=== PATIENT | male | born 1945 | race Caucasian/White ===

== ENCOUNTER 2023-03-25 02:22 | Day surgery (SDC) | payer MEDICARE, SELFPAY ==
[2023-03-15 10:37] VITALS: BMI 33.5
[2023-03-25 10:49] VITALS: BP 144/84; PULSE 61; RESP 18; TEMP 36.2; O2SAT 98
[2023-03-25] MEDS: LACTATED RINGERS 1,000 ML 150 ML IV CONT (10:59)
--- NOTE | 2023-03-25 11:17 | PM.HPGS ---
History of Present Illness History of Present Illness Consent: Risks, benefits, and alternatives have been discussed and questions answered. Patient agrees to proceed with procedure. Chief complaint: neoplasm screening , Ellsworth's Esophagus Narrative: Shun Haider is a 77 year old male Presents for both colonoscopy and EGD. Patient has a history of GE reflux and Ellsworth's esophagus. Currently symptoms are stable. He currently takes pantoprazole 40mg p.o. once daily. Symptoms are well controlled unless he goes off his diet. Patient denies any dysphagia or bleeding. Family history noncontributory. At additionally patient presents for screening colonoscopy. Reports his weight appetite and bowel movements are normal. There is no known family history of colon or rectal disease. Review of Systems Review of Systems: Review of systems noncontributory. [facility] Family History Family History Mother Family history of malignant neoplasm of ovary Father Family history of heart disease in male family member before age 55 Other Family history of cardiovascular disease Family history of malignant neoplasm Social History Social History Smoking status: Never smoker Second hand tobacco smoke exposure: Yes Alcohol intake: current Alcohol use details: occasionally Substance use: never Substance use type: does not use Lack of Transportation: No Lack of Food: Never True Current Housing: I Have Housing Concerned About Future Housing: No Difficulty Paying Gas/Electric Bills: No Difficulty Paying for Meds: No Currently Unemployed: No Education: High School Diploma/GED Difficulty w/ Childcare or Family Care: No Living arrangements: with family Spiritual care concerns: No Meds Home Medications and Allergies Home Medications Medication Instructions Recorded Confirmed Type carvedilol 3.125 mg tablet 3.125 mg PO Q12H PRN HTN 06/26/19 03/25/23 History clopidogrel 75 mg tablet (Plavix) 75 mg PO DAILY 01/19/21 03/25/23 History omega 6-yvr-ceh-fish oil 1,000 mg 1 cap PO BID 07/27/21 03/15/23 History (120 mg-180 mg) capsule (Fish Oil) glucosamine 750 rx-sojgal-tkg 2-C 1 tablet PO DAILY 08/15/22 03/15/23 History 30 mg-D3 1,000 unit-evette 1 mg tablet sodium,potassium,mag sulfates 17.5 See Rx Instructions PO .COMPLEX 09/03/22 09/12/22 Rx gram-3.13 gram-1.6 gram oral soln #354 mL (Suprep Bowel Prep Kit) rosuvastatin 20 mg tablet See Rx Instructions .Route 11/23/22 03/15/23 Rx .COMPLEX #90 tabs levothyroxine 137 mcg tablet 137 mcg PO DAILY #90 tabs 01/07/23 03/25/23 Rx losartan 100 mg tablet 100 mg PO DAILY #90 tabs 01/22/23 03/15/23 Rx pantoprazole 40 mg tablet,delayed See Rx Instructions .Route 01/22/23 03/15/23 Rx release .COMPLEX #90 tabs amlodipine 5 mg tablet 5 mg PO DAILY #90 tabs 02/19/23 03/25/23 Rx furosemide 40 mg tablet 40 mg PO QAM #90 tabs 02/19/23 03/15/23 Rx hydrocodone 10 mg-acetaminophen 1 tablet PO Q4-6H PRN pain #60 tabs 02/19/23 03/15/23 Rx 325 mg tablet lorazepam 1 mg tablet 1 mg PO TID PRN anxiety #40 tabs 02/19/23 03/25/23 Rx naloxone 4 mg/actuation nasal 1 spray intranasal Q2-3M PRN 02/19/23 03/15/23 Rx spray (Narcan) opioid overdose #2 ea cholecalciferol (vitamin D3) 50 50 mcg PO DAILY 03/15/23 03/15/23 History mcg (2,000 unit) capsule (Vitamin D3) ferrous sulfate 325 mg (65 mg 325 mg PO DAILY 03/15/23 03/15/23 History iron) tablet vit C 250 mg-E 90 mg-zinc 40 1 tablet PO QAM AND QPM 03/15/23 03/15/23 History mg-copper 1 oa-osqcwh-aqrmvh chew tablet (PreserVision AREDS-2) Allergies Allergy/AdvReac Type Severity Reaction Status Date / Time adhesive Allergy Blister Verified 03/25/23 10:46 Vital Signs Vital Signs - 24 hr 03/25/23 10:49 Temperature 97.2 F L Pulse Rate 61 Respiratory Rate 18 Blood
--- NOTE | 2023-03-25 12:08 | WPDANESEPPF ---
Anes - Initial Pre Proc Eval Procedure: Operation Date: 03/25/23 12:30 Proposed Procedures p Esophagogastroduodenoscopy & Colonoscopy - Fabián Dubois MD Date/Time: 03/25/23 12:08 Surgeon: Fabián Dubois MD Pre Op Diagnosis: neoplasm screening , Ellsworth's Esophagus Patient Data Age: 77 Gender: M Height: 1.8 m Weight: 106 kg Last Vital Signs Temp 97.2 F L 03/25/23 10:49 Pulse 61 03/25/23 10:49 Resp 18 03/25/23 10:49 BP 144/84 H 03/25/23 10:49 Pulse Ox 98 03/25/23 10:49 O2 Del Method Room Air 03/25/23 10:49 Allergies Allergy/AdvReac Type Severity Reaction Status Date / Time adhesive Allergy Blister Verified 03/25/23 10:46 Home Medications Medication Instructions Recorded Confirmed Type carvedilol 3.125 mg tablet 3.125 mg PO Q12H PRN HTN 06/26/19 03/25/23 History clopidogrel 75 mg tablet (Plavix) 75 mg PO DAILY 01/19/21 03/25/23 History omega 3-rbb-wlc-fish oil 1,000 mg 1 cap PO BID 07/27/21 03/15/23 History (120 mg-180 mg) capsule (Fish Oil) glucosamine 750 wg-vzgixo-evx 2-C 1 tablet PO DAILY 08/15/22 03/15/23 History 30 mg-D3 1,000 unit-evette 1 mg tablet sodium,potassium,mag sulfates 17.5 See Rx Instructions PO .COMPLEX 09/03/22 09/12/22 Rx gram-3.13 gram-1.6 gram oral soln #354 mL (Suprep Bowel Prep Kit) rosuvastatin 20 mg tablet See Rx Instructions .Route 11/23/22 03/15/23 Rx .COMPLEX #90 tabs levothyroxine 137 mcg tablet 137 mcg PO DAILY #90 tabs 01/07/23 03/25/23 Rx losartan 100 mg tablet 100 mg PO DAILY #90 tabs 01/22/23 03/15/23 Rx pantoprazole 40 mg tablet,delayed See Rx Instructions .Route 01/22/23 03/15/23 Rx release .COMPLEX #90 tabs amlodipine 5 mg tablet 5 mg PO DAILY #90 tabs 02/19/23 03/25/23 Rx furosemide 40 mg tablet 40 mg PO QAM #90 tabs 02/19/23 03/15/23 Rx hydrocodone 10 mg-acetaminophen 1 tablet PO Q4-6H PRN pain #60 tabs 02/19/23 03/15/23 Rx 325 mg tablet lorazepam 1 mg tablet 1 mg PO TID PRN anxiety #40 tabs 02/19/23 03/25/23 Rx naloxone 4 mg/actuation nasal 1 spray intranasal Q2-3M PRN 02/19/23 03/15/23 Rx spray (Narcan) opioid overdose #2 ea cholecalciferol (vitamin D3) 50 50 mcg PO DAILY 03/15/23 03/15/23 History mcg (2,000 unit) capsule (Vitamin D3) ferrous sulfate 325 mg (65 mg 325 mg PO DAILY 03/15/23 03/15/23 History iron) tablet vit C 250 mg-E 90 mg-zinc 40 1 tablet PO QAM AND QPM 03/15/23 03/15/23 History mg-copper 1 fu-fjkpke-hopues chew tablet (PreserVision AREDS-2) Patient hx anesthesia problems: none Family hx anesthesia problems: none Results Review: All pre-operative results and documents have been reviewed as part of the pre-operative evaluation. [facility] Family History Family History Mother Family history of malignant neoplasm of ovary Father Family history of heart disease in male family member before age 55 Other Family history of cardiovascular disease Family history of malignant neoplasm Social History Social History Smoking status: Never smoker Second hand tobacco smoke exposure: Yes Alcohol intake: current Alcohol use details: occasionally Substance use: never Substance use type: does not use Lack of Transportation: No Lack of Food: Never True Current Housing: I Have Housing Concerned About Future Housing: No Difficulty Paying Gas/Electric Bills: No Difficulty Paying for Meds: No Currently Unemployed: No Education: High School Diploma/GED Difficulty w/ Childcare or Family Care: No Living arrangements: with family Spiritual care concerns: No Anes - Eval Final PreProcedure Day of Procedure 03/25/23 12:08 Patient weight: obese Heart: regular rate and rhythm Lungs: clear to auscultation Airway: Mallampati scale class III Neurological: alert and oriented Last oral intake: >/= 8 hours ASA classification: III Emergent:
[2023-03-25] MEDS: SIMETHICONE ORAL SUSPENSION 20 MG/0.3 ML 30 ML BOTTLE 0.6 ML IRRIGATION (12:43)
--- NOTE | 2023-03-25 12:44 | SUR.OPER ---
EGD START: 1231; END: 1233. COLONOSCOPY START: 1239; END: 1248.
[2023-03-25 12:50] VITALS: BP 93/66; PULSE 51; RESP 17; O2SAT 98
[2023-03-25 13:00] VITALS: BP 111/72; PULSE 52; RESP 13; O2SAT 98
[2023-03-25 13:10] VITALS: BP 130/79; PULSE 52; RESP 18; O2SAT 98
[2023-03-25 13:17] VITALS: BP 147/80; PULSE 49; RESP 20; O2SAT 100
== END 2023-03-25 13:26 | disposition home or self-care (01) ==
PROVIDERS: PCP Family Medicine; Visit Provider Internal Medicine Gastroenterology
PROC: 0DJ08ZZ Inspection of Upper Intestinal Tract, Via Natural or Artificial Opening Endoscopic (ICD-10-PCS; CPT 43235; principal; 2023-03-25 12:30)
DX: Z12.11 Encounter for screening for malignant neoplasm of colon (principal); K64.8 Other hemorrhoids; K22.70 Barrett's esophagus without dysplasia; K44.9 Diaphragmatic hernia without obstruction or gangrene; Z79.02 Long term (current) use of antithrombotics/antiplatelets; Z79.891 Long term (current) use of opiate analgesic; E66.9 Obesity, unspecified; Z68.32 Body mass index [BMI] 32.0-32.9, adult
CPT/HCPCS: 43239; G0121; 88305; J2704; J7120

== ENCOUNTER 2024-09-15 10:42 | Outpatient (CLI) | payer MEDICARE, SELFPAY ==
[2024-09-15 12:02] LABS: Basophils Percent Auto 0.3 % (0.2-1.2); Eosinophils Absolute Auto 0.1 K/mm3 (0-0.3); Eosinophils Percent Auto 1.9 % (0-4.4); Hematocrit 48.2 % (42.0-52.0); Hemoglobin 16.8 g/dL (14.0-18.0); Immature Granulocyte Absolute 0.02 K/mm3 (0.00-0.031); Immature Granulocyte Percent A 0.3 % (0-0.5); Lymphocytes Absolute Auto 1.73 K/mm3 (0.9-3.2); Lymphocytes Percent Auto 23.1 % (18.3-44.2); Mean Corpuscular HGB Conc 34.9 g/dl (32-36); Mean Corpuscular Hemoglobin 31.5 pg (26-34); Mean Corpuscular Volume 90.3 fl (80-100); Monocytes Absolute Auto 0.5 K/mm3 (0.1-0.6); Monocytes Percent Auto 7.2 % (2.6-8.5); Neutrophils Absolute Auto 5.1 K/mm3 (1.3-6.7); Neutrophils Percent Auto 67.2 % (45.5-73.1); Platelet Count Result 234 k/mm3 (150-375); Red Blood Count 5.34 M/mm3 (4.6-6.20); Red Cell Distribution Width 12.7 % (11.5-14.5); White Blood Count 7.5 K/mm3 (4.5-10.0)
--- OUTSIDE RECORDS SUMMARY | 2024-09-15 12:07 | XMS_ITS | Clinical Summary ---
Author Organization [facility] Address [address] [place] [address] Care Team Providers Care Sales Representative Business Courses Name Role Phone Ramos Elizalde MD Unavailable [phone] Hadley Mcpherson MD Unavailable Cristiano Olivarez MD Primary Care Provider [phone] Allergies Active Allergy Reactions Criticality Noted Date Comments Adhesive Blisters High 05/02/2019 Medications amLODIPine (NORVASC) 5 mg tablet Take 0.5 tablets (2.5 mg total) by mouth 2 (two) times a day Active carvedilol (COREG) 3.125 mg tablet Take 1 tablet (3.125 mg total) by mouth 2 (two) times a day with meals Active levothyroxine (SYNTHROID) 137 mcg tablet Take 1 tablet (137 mcg total) by mouth slabber before breakfast Active pantoprazole DR (PROTONIX) 40 mg EC tablet Take 1 tablet (40 mg total) by mouth daily Active rosuvastatin (CRESTOR) 20 mg tablet Take 1 tablet (20 mg total) by mouth daily Active ticagrelor (BRILINTA) 90 mg tablet Take 1 tablet (90 mg total) by mouth 2 (two) times a day Active hydrocortisone 1 % cream Apply topically 2 (two) times a day 30 g 9 Active LORazepam (ATIVAN) 1 mg tablet Take 1 tablet (1 mg total) by mouth every 6 (six) hours as needed for anxiety Active clopidogreL (PLAVIX) 75 mg tablet Take 1 tablet (75 mg total) by mouth daily Active furosemide (LASIX) 40 mg tablet Take 1 tablet (40 mg total) by mouth 2 (two) times a day Active spironolactone (ALDACTONE) 25 mg tablet Take 1 tablet (25 mg total) by mouth daily Active mirabegron ER (MYRBETRIQ) 25 mg tablet extended release 24 hr Take 1 tablet (25 mg total) by mouth Active HYDROcodone-patricia taminophen (NORCO) 5-325 mg per tablet Take by mouth 2 Active doxycycline (PERIOSTAT) 20 mg tablet TAKE 2 TABLETS BY MOUTH DAILY ON AN EMPTY STOMACH Active metroNIDAZOLE (METROCREAM) 0.75 % cream Apply topically 9 Active solifenacin (VESIcare) 5 mg tablet solifenacin 5 mg tablet Active carvediloL (COREG) 6.25 mg tablet Take 1 tablet (6.25 mg total) by mouth 2 (two) times a day 4 Active Myrbetriq 50 mg tablet extended release 24 hr Take 1 tablet (50 mg total) by mouth daily 4 Active naproxen (ALEVE) 220 mg tablet Take by mouth 2 (two) times a day with meals Takes 660mg Active Active Problems Problem Noted Date Diagnosed Date Lumbar radiculopathy 08/13/2024 Cholecystitis 06/04/2019 Overview (06/04/2019): Added automatically from request for surgery [id number] Acute cholecystitis 04/26/2019 S/P coronary artery stent placement 04/26/2019 CHRISTO (acute kidney injury) 04/26/2019 Hypothyroid 04/26/2019 Encounters Date Type Department Care Team Description 08/13/2024 12:28 PM GENERAL INTERNAL MEDICINE DOCTOR - 08/13/2024 11:59 PM GENERAL INTERNAL MEDICINE DOCTOR Hospital Encounter [facility] [address] [facility] [place] [address] [place] [address] Norm Cameron MD Lumbar radiculopathy Discharge Disposition: Discharge to home or self care 08/11/2024 Telephone [facility] [address] [facility] [address] [place] [address] Norm Cameron MD PMC Preprocedure 08/05/2024 Telephone [facility] [address] [place] [address] Norm Cameron MD Anticoagulation 07/29/2024 11:35 AM GENERAL INTERNAL MEDICINE DOCTOR - 07/29/2024 11:59 PM GENERAL INTERNAL MEDICINE DOCTOR Hospital Encounter [facility] [address] [place] [address] [facility] [address] [place] [address] Norm Cameron MD Lumbar radiculopathy (Primary Dx); Peripheral polyneuropathy; Nerve root and plexus disorder Discharge Disposition: Discharge to home or self care 07/29/2024 Telephone [facility] [place] [facility] [address] [place] [address] [facility] [address] [place] [address] Norm Cameron MD Anticoagulation from Last 3 Months Immunizations Immunization Administration Dates Next Due Influenza, Trivalent, High D ose, Split, Preservative Free, Intramuscular 04/20/2017 Surgical History Surgery Date Site/Laterality Comments BACK SURGERY CARDIAC STENT PLACEMENT IR PICC LINE PLACEMENT > 5 YEARS 04/26/2019 N/A GALLBLADDER DRAINAGE 04/26/2019 N/A IR CHOLANGIOGRAM THROUGH EXISTING CATHETER 04/30/2019 N/A Medical History Medical History Date Comments Neuropathy Neurogenic bladder Hypertension Hyperlipidemia Ellsworth esophagus Hypothyroid Bilateral hip pain Family History Medical History Relation Name Comments Heart disease Brother Family history of cardiac disorder - (Added by TW Conv) Heart disease Father Family history of cardiac disorder - (Added by TW Conv) Relation Name Status Comments Brother Father Social History Tobacco Use Types Packs/Day Years Used Date Smoking Tobacco: Never Smokeless Tobacco: Never Alcohol Use Standard Drinks/Week Comments Not Currently 0 (1 standard drink = 0.6 oz pur e alcohol) AUDIT-C Answer Date Recorded Q1: How often do you have a drink containing alc ohol? Monthly or less 07/29/2024 Q2: How many drinks containi ng alcohol do you have on a typical day when you are drinking? 1 or 2 07/29/2024 Q3: How often do you have si x or more drinks on one occasion? Never 07/29/2024 PHQ-2 Answer Date Recorded PHQ-2 Score 0 04/26/2019 Hunger Vital Sign Answer Date Recorded Within the past 12 months, y ou worried that your food would run out before you got the money to buy more. Never true 07/29/19 25 Within the past 12 months, t he food you bought just didn't last and you didn't have money to get more. Never true 07/29/2024 Sex and Gender Information Value Date Recorded Sex Assigned at Not on file Legal Sex Male 7:55 PM GENERAL INTERNAL MEDICINE DOCTOR Gender Identity Male 09/26/2023 7:50 PM CDT Sexual Orientation Not on file Obstetrics History Last Filed Vital Signs Vital Sign Reading Time Taken Comments Blood Pressure 146/92 08/13/2024 1:56 PM GENERAL INTERNAL MEDICINE DOCTOR Pulse 65 08/13/2024 1:56 PM GENERAL INTERNAL MEDICINE DOCTOR Temperature 36.4 C (97.5 F) 08/13/2024 12:55 PM GENERAL INTERNAL MEDICINE DOCTOR Respiratory Rate 17 08/13/2024 1:56 PM GENERAL INTERNAL MEDICINE DOCTOR Oxygen Saturation 96% 08/13/2024 1:56 PM GENERAL INTERNAL MEDICINE DOCTOR Inhaled Oxygen Concentration - - Weight 111.1 kg (244 lb 14.4 oz) 2024 12:55 PM GENERAL INTERNAL MEDICINE DOCTOR Height 182.9 cm (6') 08/13/2024 12:55 PM GENERAL INTERNAL MEDICINE DOCTOR Body Mass Index 33.21 08/13/2024 12:55 PM GENERAL INTERNAL MEDICINE DOCTOR Plan of Treatment Health Maintenance Due Date Last Done Comments Fall Risk Assessment 1945 Hepatitis C Screening 1945 DTaP/Tdap/Td Vaccine (1 - Tdap) 1958 Hepatitis B Screening 1965 Pneumococcal vaccine 65+ (1 of 1 - PCV) 1997 Zoster Vaccine (1 of 2) 1997 Well Visit 65+ 2012 Depression Screening 04/26/2020 04/26/2019, 04/26/20 19 Influenza Vaccine (#1) 2024 04/20/2017 Goals Goal Patient Goal Type Associated Problems Recent Progress Patient-Stated? Author CCM Chronic Pain Care Plan Chronic Care Management No change(08/13 1:10 PM GENERAL INTERNAL MEDICINE DOCTOR) No Sydnee Lynch, RN Note: Problem: Chronic Pain Goals: 1. Minimize further functional decline 2. Maximize quality of life 3. Control pain Strategies: - Activity/exercise program recommendation - Conservative stepwise pain medicine strategy with multi-disciplinary approach - Recommend healthy lifestyle strategies and compensatory methods as needed Medical Devices Implanted Type Area Nutritionists Device Identifier Shelf Expiration Date Model / Serial / Lot Stent Implanted:Qty: 2 N/A: Heart Stent Right: Groin Catarect Lens Bilateral: Eye Oral Implant Left: Mouth Procedures Procedure Name Priority Date/Time Associated Diagnosis Comments PAIN MGMT IMAGING LUMBAR/SACRAL SELECTIVE NERVE ROOT INJ (TFE) BILATERAL Schedule Routine, Read Routine (OP Routine) 08/13/2024 1:54 PM GENERAL INTERNAL MEDICINE DOCTOR Lumbar radiculopathy from Last 3 Months Results * Imaging Lumbar/Sacral Selective Nerve Root INJ (TFE) Bilateral ([id number]) (08/13/2024 1:54 PM GENERAL INTERNAL MEDICINE DOCTOR) Narrative [facility] - 08/13/2024 1:55 PM GENERAL INTERNAL MEDICINE DOCTOR The images from this study are not interpreted by Radiology. Please refer to the physician's procedure / OR operative note. us Norm Santoyo MD IMG PAIN MGMT PROCEDU RES Final Result Performing Organization Address City/State/[facility] Co de Phone Number [facility] from Last 3 Months Insurance [facility] MDCR HMO [facility] MEDICARE Address: [facility] [address] [place] [address] MEDICARE [employer] [facility] MEDICARE Address: [address] [place] [phone] MEDICARE [facility] MEDICARE Address: [address] [address] Advance Directives For more information, please contact: [phone] * Full Code (Latest Code Status on File) Date Activated Date Inactivated Comments 06/15/2019 6:01 PM 06/18/2019 3:52 PM * Full Code Date Activated Date Inactivated Comments 04/26/2019 3:29 AM 05/02/2019 6:51 PM Care Teams Sales Representative Business Courses Relationship Specialty Start Date End Date Cristiano Olivarez MD PCP - General Family Practice 09/26/23 Ramos Elizalde MD Surgeon Colon and Rectal Surgery 05/02/19 Hadley Mcpherson MD Consulting Physician Cardiovascular Disease 05/02/19
--- OUTSIDE RECORDS SUMMARY | 2024-09-15 12:07 | XMS_ITS | Referral Summary ---
Author Organization [facility] Address [address] [place] [address] Care Team Providers Care Continuous Process Tanner Rotary Drum Name Role Phone Ramos Elizalde MD Unavailable [phone] Hadley Mcpherson MD Unavailable Cristiano Olivarez MD Primary Care Provider [phone] Encounters Date Type Department Care Team Description 08/13/2024 12:28 PM CLERICAL TRANSCRIBER - 08/13/2024 11:59 PM CLERICAL TRANSCRIBER Hospital Encounter [facility] [address] [place] [address] [facility] [address] [place] [address] Norm Cameron MD Lumbar radiculopathy Discharge Disposition: Discharge to home or self care 08/11/2024 Telephone [facility] [address] [place] [address] for [facility] [address] [place] [address] Norm Cameron MD [facility] Preprocedure 08/05/2024 Telephone [facility] [address] [place] [address] for [facility] Medicine [address] [place] [address] Norm Cameron MD [facility] 07/29/2024 Telephone [facility] [address] [place] [address] Advanced [facility] [address] [place] [address] Norm Cameron MD Anticoagulation 07/29/2024 11:35 AM CLERICAL TRANSCRIBER - 07/29/2024 11:59 PM CLERICAL TRANSCRIBER Hospital Encounter [facility] [address] [facility] [address] [place] [address] Norm Cameron MD Lumbar radiculopathy (Primary Dx); Peripheral polyneuropathy; Nerve root and plexus disorder Discharge Disposition: Discharge to home or self care from Last 3 Months Allergies Active Allergy Reactions Criticality Noted Date [...] 1 tablet (137 mcg total) by mouth campus recruiting intern before breakfast Active pantoprazole DR (PROTONIX) 40 [...] (06/04/2019): Added automatically from request for surgery [id number] Acute cholecystitis 04/26/2019 S/P coronary artery stent placement 04/26/2019 CHRISTO (acute kidney injury) 04/26/2019 Hypothyroid 04/26/2019 Immunizations Immunization Administration Dates Next Due Influenza, Trivalent, High D ose, Split, Preservative Free, Intramuscular 04/20/2017 Social History Tobacco Use Types Packs/Day Years [...] on file Legal Sex Male 7:55 PM CLERICAL TRANSCRIBER Gender Identity Male 09/26/2023 7:50 PM CDT Sexual Orientation Not on file Last Filed Vital Signs Vital Sign Reading Time Taken Comments Blood Pressure 146/92 08/13/2024 1:56 PM CLERICAL TRANSCRIBER Pulse 65 08/13/2024 1:56 PM CLERICAL TRANSCRIBER Temperature 36.4 C (97.5 F) 08/13/2024 12:55 PM CLERICAL TRANSCRIBER Respiratory Rate 17 08/13/2024 1:56 PM CLERICAL TRANSCRIBER Oxygen Saturation 96% 08/13/2024 1:56 PM CLERICAL TRANSCRIBER Inhaled Oxygen Concentration - - Weight 111.1 kg (244 lb 14.4 oz) 2024 12:55 PM CLERICAL TRANSCRIBER Height 182.9 cm (6') 08/13/2024 12:55 PM CLERICAL TRANSCRIBER Body Mass Index 33.21 08/13/2024 12:55 PM CLERICAL TRANSCRIBER Plan of Treatment Not on file Goals Goal Patient Goal Type Associated Problems Recent Progress Patient-Stated? Author CCM Chronic Pain Care Plan Chronic Care Management No change(08/13 1:10 PM CLERICAL TRANSCRIBER) No Sydnee Lynch, RN Note: Problem: Chronic Pain Goals: 1. Minimize further functional decline 2. Maximize quality of life 3. Control pain Strategies: - Activity/exercise program recommendation - Conservative stepwise pain medicine strategy with multi-disciplinary approach - Recommend healthy lifestyle strategies and compensatory methods as needed Medical Devices Implanted Type Area Roller Coaster Designer Device Identifier Shelf Expiration Date Model / Serial / Lot Stent Implanted:Qty: 2 N/A: Heart Stent Right: Groin Catarect Lens Bilateral: Eye Oral Implant Left: Mouth Procedures Procedure Name Priority Date/Time Associated Diagnosis Comments PAIN MGMT IMAGING LUMBAR/SACRAL SELECTIVE NERVE ROOT INJ (TFE) BILATERAL Schedule Routine, Read Routine (OP Routine) 08/13/2024 1:54 PM CLERICAL TRANSCRIBER Lumbar radiculopathy from Last 3 Months Results * Imaging Lumbar/Sacral Selective Nerve Root INJ (TFE) Bilateral ([id number]) (08/13/2024 1:54 PM CLERICAL TRANSCRIBER) Narrative [facility] - 08/13/2024 1:55 PM CLERICAL TRANSCRIBER The images from this study are not interpreted by Radiology. Please refer to the physician's procedure / OR operative note. Norm Santoyo MD IMG PAIN MGMT PROCEDU RES Final Result [facility] from Last 3 Months Insurance [facility] Address: [address] [place] [phone] [facility] Address: [address] [address] [place] [address] Advance Directives For more information, please contact: [phone] * Full Code (Latest Code Status on File) Date Activated Date Inactivated Comments 06/15/2019 6:01 PM 06/18/2019 3:52 PM * Full Code Date Activated Date Inactivated Comments 04/26/2019 3:29 AM 05/02/2019 6:51 PM Care Teams Continuous Process Tanner Rotary Drum Relationship Specialty Start Date End Date Cristiano Olivarez MD PCP - General Family Practice 09/26/23 Ramos Elizalde MD Surgeon Colon and Rectal Surgery 05/02/19 Hadley Mcpherson MD Consulting Physician Cardiovascular Disease 05/02/19
--- OUTSIDE RECORDS SUMMARY | 2024-09-15 12:07 | XMS_ITS | CONTINUITY OF CARE DOCUMENT ---
Author Name reneteresa sharonjimbo Address Unknown Organization [facility] Address [address] [place] [address] Phone [phone] Care Team Providers Care Mobile Home Servicer Name Role Phone Hadley Mcpherson MD Unavailable [phone] JORDAN SAWYER DO Unavailable [phone] ENMANUEL BENITEZ MD Unavailable [phone] PROBLEMS Condition Status Date Provider Notes HTN active Hadley Mcpherson MD CAD S/P LCX & LAD STENTS, 80% PDA 2017 active Howard Michel Bradycardia active Hadley Mcpherson MD Fatigue active Hadley Mcpherson MD PAC's active Hadley Mcpherson MD Hyperlipidemia active Hadley Mcpherson MD Leg edema completed - Ang Calvin MD Obesity active Howard Michel PVD - 05/2017 MAGNOLIA'S MILD active Hadley Mcpherson MD 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 Howard Michel AAA - 08/2019 3.0 cm active Howard Tian erg Palpitations active Hadley Mcpherson MD Renal cyst active Hadley Mcpherson MD Diastolic CHF active Ang Calvin MD lowes t ef 70 Gallstones active Ang Calvin MD LVH active Hadley Mcpherson MD Dyspnea on exertion active Dee Trujillo eyer Aortic insufficiency, mild active Ej bonilla ENCOUNTERS Date Type Provider Location Encounter Diag nosis - In-person encounter Office Visit Hadley Mcpherson MD [facility] Aortic insufficiency, mild - In-person encounter Office Visit Hadley Mcpherson MD [facility] - In-person encounter Office Visit Hadley Mcpherson MD [facility] - In-person encounter Office Visit Hadley Mcpherson MD [facility] - In-person encounter Office Visit Hadley Mcpherson MD [facility] - In-person encounter Office Visit Hadley Mcpherson MD [facility] Dyspnea on exertion - In-person encounter Office Visit Hadley Mcpherson MD [facility] - In-person encounter Office Visit Hadley Mcpherson MD [facility] CAD S/P LCX & LAD STENTS, 80% PDA 2017Chronic venous HTN w/BLE inflammation and GSV/LSV insufficiency08/2019 3.0 cm - In-person encounter Office Visit Hadley Mcpherson MD [facility] ObesityPVD - 05/2017 MAGNOLIA'S MILDLVH - In-person encounter Office Visit Ang Calvin MD [facility] Leg edemaObesityDiastolic CHFGallstones - In-person encounter Office Visit Hadley Mcpherson MD [facility] AAA - 08/2019 3.0 cmRenal cyst - In-person encounter Office Visit Hadley Mcpherson MD [facility] AAA - 08/2019 3.0 cmPalpitations - In-person encounter Office Visit Hadley Mcpherson MD [facility] PVD - 05/2017 MAGNOLIA'S MILDChronic venous HTN w/BLE inflammation and GSV/LSV insufficiency - In-person encounter Office Visit Hadley Mcpherson MD [facility] HTNCAD S/P LCX & LAD STENTS, 80% PDA 2017BradycardiaFatiguePAC's HyperlipidemiaObesityPVD - 05/2017 MAGNOLIA'S MILD VITAL SIGNS Date Observation Value Provider Body Mass Index (Ratio) 32.14 kg/m2 Sanju Higueraemil blood pressure, diastolic 90 mm[Hg] Rodrick hoffman Mabry blood pressure, systolic 130 mm[Hg] Deirdre pride Marby blood pressure, cuff size regular Rodrick [facility] oxygen saturation, oximetry 98 % [facility] pulse rate 56 /min [facility] weight E&M 237 [lb_av] [facility] Mabry height E&M 72 [in_i] [facility] Body Mass Index (Ratio) 32.28 kg/m2 Sanju ramu [facility] blood pressure, diastolic 84 mm[Hg] Li [facility]Logic blood pressure, systolic 142 mm[Hg] Molly kLogic blood pressure, diastolic 84 mm[Hg] Celso et blood pressure, systolic 142 mm[Hg] Jar ret pulse rate 67 /min Michael y blood pressure, cuff size regular rret oxygen saturation, oximetry 97 % Michael respiratory rate E&M 14 /min Michael weight E&M 238 [lb_av] Michael y height E&M 72 [in_i] Michael y Body Mass Index (Ratio) 32.28 kg/m2 Tomas Meadows blood pressure, cuff size regular Alejandro Glover blood pressure, diastolic 80 mm[Hg] Alejandro root Glover blood pressure, systolic 147 mm[Hg] Garland pate Glover pulse rate 64 /min Krystin Kiefer oxygen saturation, oximetry 98 % Krystin Kiefer respiratory rate E&M 16 /min Krystin bedollar weight E&M 238 [lb_av] Krystin Glover height E&M 72 [in_i] Krystin Kiefer Body Mass Index (Ratio) 32.41 kg/m2 Diana Benites blood pressure, cuff size regular Ja et blood pressure, diastolic 79 mm[Hg] Ja rret blood pressure, systolic 140 mm[Hg] Jar ret pulse rate 53 /min Michael respiratory rate E&M 12 /min Michael oxygen saturation, oximetry 99 % Michael weight E&M 239 [lb_av] Michael y height E&M 72 [in_i] Michael y Body Mass Index (Ratio) 33.36 kg/m2 Shahrzad zeng Eri pulse rate 76 /min Annie Padilla blood pressure, diastolic 82 mm[Hg] Yvonne dann Padilla blood pressure, systolic 143 mm[Hg] Maggie Padilla oxygen saturation, oximetry 95 % Annie Padilla weight E&M 246 [lb_av] Annieelio Padilla blood pressure, cuff size large An dann Padilla height E&M 72 [in_i] Annie Padilla Body Mass Index (Ratio) 33.77 kg/m2 Belem Wilson blood pressure, diastolic 89 mm[Hg] Meri nkLogic blood pressure, systolic 147 mm[Hg] Molly kLogcatherine blood pressure, cuff size regular Chayo Wharton blood pressure, diastolic 89 mm[Hg] Chayo Wharton blood pressure, systolic 147 mm[Hg] She adarsh Wharton pulse rate 56 /min Lluvia Wharton respiratory rate E&M 20 /min Lluvia Wharton oxygen saturation, oximetry 97 % Lluvia Wharton weight E&M 249 [lb_av] Lluvia Wharton height E&M 72 [in_i] Lluvia Wharton Body Mass Index (Ratio) 33.36 kg/m2 Belem Gallegosmeyer blood pressure, diastolic 80 mm[Hg] Meri nkLogic blood pressure, systolic 143 mm[Hg] Molly kLogic blood pressure, diastolic 80 mm[Hg] Sa ra Maier blood pressure, systolic 143 mm[Hg] Shruthi a Maier respiratory rate E&M 17 /min Shahrzad Si ms oxygen saturation, oximetry 97 % Shahrzad Maier pulse rate 61 /min Shahrzad Maier weight E&M 246 [lb_av] Shahrzad Maier blood pressure, cuff size regular Sa ra Maier height E&M 72 [in_i] Shahrzad Maier Body Mass Index (Ratio) 32.95 kg/m2 Renny Michel oxygen saturation, oximetry 98 % Chastity Aristeo blood pressure, diastolic 84 mm[Hg] Ch astity Aristeo blood pressure, systolic 146 mm[Hg] Stacy stity Aristeo pulse rate 63 /min Chastity Aristeo respiratory rate E&M 16 /min Chastit y Aristeo weight E&M 243 [lb_av] Chastity Aristeo height E&M 72 [in_i] Chastity Aristeo Body Mass Index (Ratio) 31.60 kg/m2 Renny Michel blood pressure, diastolic, left arm 84 mm [Hg] [facility] blood pressure, systolic, left arm 128 mm [Hg] [facility] blood pressure, diastolic, right arm 83 m m[Hg] [facility] blood pressure, systolic, right arm 123 m m[Hg] [facility] oxygen saturation, oximetry 98 % [facility] pulse rate 71 /min [facility] respiratory rate E&M 16 /min [facility] blood pressure, diastolic 84 mm[Hg] [facility] blood pressure, systolic 128 mm[Hg] [facility] weight E&M 233 [lb_av] [facility] height E&M 72 [in_i] [facility] Body Mass Index (Ratio) 29.83 kg/m2 Slava Calvin MD blood pressure, cuff size regular Cy julia Infante respiratory rate E&M 16 /min Jennifer Infante pulse rate 82 /min Jennifer Alcarazbel l oxygen saturation, oximetry 99 % Jennifer Infante blood pressure, diastolic 74 mm[Hg] Cy julia Infante blood pressure, systolic 120 mm[Hg] Raquel deep Infante weight E&M 220 [lb_av] Jennifer Campbel l height E&M 72 [in_i] Jennifer Campbel l Body Mass Index (Ratio) 31.46 kg/m2 Renny Michel blood pressure, diastolic 70 mm[Hg] Da yoandy Radha blood pressure, systolic 122 mm[Hg] Dac ia Radha oxygen saturation, oximetry 99 % Stacy Radha respiratory rate E&M 16 /min Stacy V oss pulse rate 57 /min Stacy Radha weight E&M 232 [lb_av] Stacy Radha height E&M 72 [in_i] Stacy Garcia Body Mass Index (Ratio) 31.33 kg/m2 Renny Michel blood pressure, diastolic 90 mm[Hg] Miguel Tracy blood pressure, systolic 149 mm[Hg] Ember Tracy oxygen saturation, oximetry 97 % Gabrielle Tracy respiratory rate E&M 18 /min Rohit Tracy pulse rate 61 /min Gabrielle mccallum weight E&M 231 [lb_av] Gabrielle mccallum height E&M 72 [in_i] Gabrielle mccallum Body Mass Index (Ratio) 31.16 kg/m2 Renny Michel blood pressure, diastolic 79 mm[Hg] Miguel Tracy blood pressure, systolic 131 mm[Hg] Ember Tracy oxygen saturation, oximetry 99 % Gabrielle Tracy respiratory rate E&M 18 /min Rohit Tracy pulse rate 93 /min Gabrielle mccallum weight E&M 229.8 [lb_av] Gabrielle serra height E&M 72 [in_i] Gabrielle mccallum Body Mass Index (Ratio) 30.51 kg/m2 Renny Michel blood pressure, resting Yes Hadley Mcpherson MD blood pressure, cuff size regular Ke rri Carson blood pressure, diastolic 94 mm[Hg] Lexx rri Carson blood pressure, systolic 151 mm[Hg] Brandie Byrd oxygen saturation, oximetry 98 % Magdalena Byrd respiratory rate E&M 18 /min Magdalena jimenez pulse rate 73 /min Magdalena gonzales weight E&M 225 [lb_av] Magdalena Madison lder height E&M 72 [in_i] Magdalena Madison lder ALLERGIES No Known Drug Allergies RESULTS Date Observation Value Provider Reference Range Interpretation Location prothrombin time (patient) 10.6 s [facility] 9.1-12.0 international normalized ratio (INR) 1.0 [facility] 0.9-1.2 lipoprotein, beta, serum, point, quantitative, calculated 53 mg/dL [facility] 0-99 HDL cholesterol, serum 35 mg/dL [facility] >39 Low triglyceride, serum, random 167 mg/dL [facility] 0-149 High cholesterol, serum 116 mg/dL [facility] [id number] 2725/05/ 06 calcium, serum 9.1 mg/dL [facility] 8.6-10.2 carbon dioxide, venous blood 21 mmol/L [facility] 20-29 chloride, serum 103 mmol/L [facility] 96-106 potassium, serum 4.1 mmol/L [facility] 3.5-5.2 sodium, serum 141 mmol/L [facility] [id number] 1416/05/ 06 urea nitrogen/creatinine ratio, serum 17 [facility] 10-24 eGFR if 57 mL/min/{1 .73_m2} [facility] >59 Low eGFR if not 49 mL/min/{1 .73_m2} [facility] >59 Low creatinine, serum 1.40 mg/dL [facility] 0.76-1.27 High urea nitrogen, blood 24 mg/dL [facility] 8-27 blood glucose, random 89 mg/dL [facility] 65-99 basophil count, absolute 0.0 x10E3/uL [facility] 0.0-0.2 Eosinophil Absolute Count 0.1 X10E3/UL [facility] 0.0-0.4 monocyte count, blood, automated 0.4 X10E3/UL [facility] 0.1-0.9 lymphocyte count, blood, automated 1.4 X10E3/UL [facility] 0.7-3.1 Absolute Neutrophils 4.4 X10E3/UL [facility] 1.4-7.0 basophils as percent of blood leukocytes 0 % [facility] Not Estab. eosinophils as percent of blood leukocytes 2 % [facility] Not Estab. monocytes as percent of blood leukocytes 7 % [facility] Not Estab. lymphocytes as percent of blood leukocytes 21 % [facility] Not Estab. neutrophils as percent of blood leukocytes 70 % [facility] Not Estab. platelet count 194 X10E3/UL [facility] [id number] 8139/05/ 06 red blood cell distribution width 14.5 % [facility] 11.6-15.4 mean corpuscular hemoglobin concentration, RBC 33.6 G/DL [facility] 31.5-35.7 mean corpuscular hemoglobin, RBC 29.8 pg [facility] 26.6-33.0 mean corpuscular volume, RBC 89 fL [facility] 79-97 hematocrit, blood 42.6 % [facility] 37.5-51.0 hemoglobin, blood 14.3 g/dL [facility] 13.0-17.7 erythrocyte (RBC) count 4.80 X10E6/UL [facility] 4.14-5.80 leukocyte count, blood 6.3 X10E3/UL [facility] 3.4-10.8 pro brain natriuretic peptide 503 pg/mL [facility] platelet count 383 10*3/mm3 [facility] platelet count 383 10*3/uL [facility] red blood cell distribution width 14.5 % [facility] mean corpuscular hemoglobin concentration, RBC 33.4 g/dL [facility] mean corpuscular hemoglobin, RBC 30.0 pg [facility] mean corpuscular volume, RBC 89.9 fL [facility] hematocrit, blood 41.9 % [facility] hemoglobin, blood 14.0 g/dL [facility] erythrocyte (RBC) count 4.66 10*6/mm3 [facility] leukocyte count, blood 11.8 10*3/mm3 [facility] carbon dioxide, venous blood 28 mmol/L [facility] calcium, serum 8.5 mg/dL [facility] blood glucose, random 99 mg/dL [facility] creatinine, serum 1.46 mg/dL [facility] urea nitrogen, blood 16 mg/dL [facility] carbon dioxide, serum, total 28 mmol/L [facility] chloride, serum 102 mmol/L [facility] potassium, serum 3.4 mmol/L [facility] sodium, serum 142 mmol/L [facility] protein, total, serum 5.7 g/dL [facility] albumin, serum 2.5 g/dL [facility] bilirubin, serum, total 0.9 mg/dL [facility] alkaline phosphatase, serum 70 1/L [facility] alanine aminotransferase (SGPT), serum 67 1/L [facility] aspartate aminotransferase (SGOT), serum 43 1/L [facility] calcium, serum 7.9 mg/dL [facility] blood glucose, random 102 mg/dL [facility] creatinine, serum 1.48 mg/dL [facility] urea nitrogen, blood 13 mg/dL [facility] carbon dioxide, serum, total 25 mmol/L [facility] chloride, serum 102 mmol/L [facility] potassium, serum 3.0 mmol/L [facility] sodium, serum 142 mmol/L [facility] HISTORY OF MEDICATION USE Medication Status Instructions Dates Provider Indications Com ments spironolactone 25 mg tablet active TAKE 1 TABLET BY MOUTH EVERY DAY Michael losartan 100 mg tablet completed - Hadley Mcpherson MD solifenacin 5 mg tablet active TAKE 1 TABLET BY MOUTH DAILY Krystin Glover spironolactone 25 mg tablet completed Take 1 tablet by mouth once daily - Michael furosemide 40 mg tablet active TAKE 1 TABLET BY MOUTH EVERY DAY Lori Howard carvedilol 6.25 mg tablet completed TAKE 1 TABLET BY MOUTH TWICE DAILY - Hadley Mcpherson MD clopidogrel 75 mg tablet active TAKE 1 TABLET BY MOUTH DAILY Jessica Silverman Lasix 40 mg tablet completed TAKE 1 TABLET BY MOUTH EVERY DAY - Hadley Mcpherson MD hydrocodone-acet aminophen 5-325 mg tablet active 1 tablet by mouth as directed Take one tablet 20 minutes prior to procedure. Cristopher Baxter RN clopidogrel 75 mg tablet completed Take 1 tablet once a day - Fiona Ryder RN mometasone 0.1% cream active Apply to skin once a day Chastity Aristeo #45, 20 days supply, Prescribed by JORDAN SAWYER, Filled 01/14/2020 doxycycline hyclate 20 mg tablet active Take 2 tablet by mouth once a day Chastity Aristeo #180, 90 days supply, Prescribed by RUBY DEGROOT, Filled 09/08/2020 TRIAMCINOLONE ACETONIDE 0.025 % EXTERNAL CREAM completed - Stacystity Aristeo #15, 7 days supply, Prescribed by RUBY DEGROOT, Filled 07/31/2019 metronidazole 0.75% cream active Apply to skin as needed Yoselin Alberts ASPIRIN EC 81 MG ORAL TABLET DELAYED RELEASE completed one tab daily - Hadley Mcpherson MD BRILINTA 90MG TABLETS completed TAKE 1 TABLET BY MOUTH TWICE DAILY - Fiona VELÁZQUEZ BRILINTA 90 MG ONE TAB TWICE A DAY completed - David PATELILIMARIA A ASPIRIN 81 MG ONE TAB DAILY completed - David Craig Crestor 20 mg tablet active 1 tablet by mouth once a day Gabrielle Tracy pantoprazole 40 mg recon soln active Take 1 once a day Magdalena Byrd losartan-hydroch lorothiazide 100-12.5 mg tablet completed 1 tablet once a day - Hadley Mcpherson MD lorazepam 1 mg tablet active tablet by mouth as needed Gabrielle Tracy levothyroxine 137 mcg tablet active Take 1 by mouth once a day Magdalena Byrd carvedilol 3.125 mg tablet completed Take 1 tablet by mouth twice a day - Lori Howard BRILINTA 90 MG ORAL TABLET completed take one pill a day - Sheri Burkett ASPIRIN ADULT LOW DOSE 81 MG ORAL TABLET DELAYED RELEASE completed One Tab By Mouth Daily - Sheri Burkett Norvasc 5 mg tablet active Take 1 tablet by mouth once a day Hadley Mcpherson MD SOCIAL HISTORY Date Observation Value Provider smoking status Never smoker Ej fernandez smoking status Never smoker Hadley Menezes number of grandchildren Hadley Mcpherson MD smoking status Never smoker Krystin Glover smoking status Never smoker Hadley Menezes social history reviewed E&M liberty ewed - no changes required Hadley Mcpherson MD social history reviewed E&M liberty ewed - no changes required Sandra Hwang social history E&M S moking History: Jose wagner has never smoked. Sandra Hwang smoking status Never smoker Annie Padilla social history E&M S moking History: Jose wagner has never smoked. Hadley Mcpherson MD social history reviewed E&M revi ewed - no changes required Hadley Mcpherson MD smoking status Never smoker Lluvia Wharton social history reviewed E&M revi ewed - no changes required Hadley Mcpherson MD social history reviewed E&M revi ewed - no changes required Howard Michel smoking status Never smoker Yoselin Wiseman maurice social history reviewed E&M revi ewed - no changes required Hadley Mcpherson MD social history E&M Smoking Histo ry: P kristy has never smoked. Hadley Mcpherson MD smoking status Never smoker Abril Subramanian social history E&M S moking History: P kristy has never smoked. Ang Calvin MD social history reviewed E&M revi ewed - no changes required Ang Calvin MD smoking status Never smoker Jennifer Alexsander levin social history reviewed E&M revi ewed - no changes required Hadley Mcpherson MD smoking status Never smoker Stacy Garcia social history reviewed E&M revi ewed - no changes required Hadley Mcpherson MD smoking status Never smoker Gabrielle Benites social history reviewed E&M revi ewed - no changes required Howard Michel smoking status Never smoker Gabrielletree Benites social history E&M Smoking Histo ry: Jose wagner has never smoked. Hadley Mcpherson MD social history reviewed E&M revi ewed - no changes required Hadley Mcpherson MD smoking status Never smoker Magdalena barnes FUNCTIONAL STATUS Date Observation Value Provider HRA, CV Assess/Plan, Angina (inactive) Management Plan continue current therapy Ej Kat HRA, CV Assess/Plan, Angina (inactive) Management Plan continue current therapy Ej Kat HRA, CV Assess/Plan, Angina (inactive) Management Plan continue current therapy Hadley Mcpherson MD HRA, CV Assess/Plan, Angina (inactive) Management Plan continue current therapy Hadley Mcpherson MD HRA, CV Assess/Plan, Angina (inactive) Management Plan continue current therapy Sandra Hwang HRA, CV Assess/Plan, Angina (inactive) Management Plan continue current therapy Dee Katie HRA, CV Assess/Plan, Angina (inactive) Management Plan continue current therapy Hadley Mcpherson MD HRA, CV Assess/Plan, Angina (inactive) Management Plan schedule PCI Howard Michel HRA, CV Assess/Plan, Angina (inactive) Management Plan continue current therapy Hadley Mcpherson MD HRA, CV Assess/Plan, Angina (inactive) Management Plan continue current therapy Ang Calvin MD HRA, CV Assess/Plan, Angina (inactive) Management Plan continue current therapy Hadley Mcpherson MD HRA, CV Assess/Plan, Angina (inactive) Management Plan continue current therapy Hadley Mcphesron MD HRA, CV Assess/Plan, Angina (inactive) Management Plan continue current therapy Hadley Mcpherson MD HRA, CV Assess/Plan, Angina (inactive) Management Plan continue current therapy Hadley Mcpherson MD FAMILY HISTORY Family Member Condition Mother Negative FH of Coron daniel Artery Disease Father Family History of Dial dden Cardiac : Father Family History of Co ronary Artery Disease: Father Family History of Hy pertension: Father Family History of Hy perlipidemia: Father Family History of CV A or Stroke: INSURANCE PROVIDERS Payer name Policy type / Coverage type [place] [employer] party ID [employer] MEDICARE AD[employer]AGE [address] 0 003 (HMO POS) Medicare [id number] ADVANCE DIRECTIVES Name Date DISCUSSED - NO DECISION MADE TREATMENT PLAN Date Name Performer [id number],B, Hadley Mcpherson MD [id number],S,d enies CP and SOB H is updated medication list for this problem includes: Norvasc 10 Mg Tablet (Amlodipine) ..... Take 1 tablet by mouth once a day Spironolactone 25 Mg Tablet (Spironolactone) ..... Take 1 tablet by mouth once daily Clopidogrel 75 Mg Tablet (Clopidogrel) ..... Take 1 tablet by mouth daily Carvedilol 6.25 Mg Tablet (Carvedilol) ..... Take 1 tablet by mouth twice daily Furosemide 40 Mg Tablet (Furosemide) ..... Take 1 tablet by mouth every day Losartan-hydrochlorothiazide 100-12.5 Mg Tablet (Losartan-hydrochlorothiazide) ..... 1 tablet once a day Hadley Mcpherson MD [id number],S,a sx His updated medication list for this problem includes: Norvasc 10 Mg Tablet (Amlodipine) ..... Take 1 tablet by mouth once a day Spironolactone 25 Mg Tablet (Spironolactone) ..... Take 1 tablet by mouth once daily Carvedilol 6.25 Mg Tablet (Carvedilol) ..... Take 1 tablet by mouth twice daily Furosemide 40 Mg Tablet (Furosemide) ..... Take 1 tablet by mouth every day Losartan-hydrochlorothiazide 100-12.5 Mg Tablet (Losartan-hydrochlorothiazide) ..... 1 tablet once a day Hadley Mcpherson MD [id number],S,n o angina H is updated medication list for this problem includes: Norvasc 10 Mg Tablet (Amlodipine) ..... Take 1 tablet by mouth once a day Clopidogrel 75 Mg Tablet (Clopidogrel) ..... Take 1 tablet by mouth daily Carvedilol 6.25 Mg Tablet (Carvedilol) ..... Take 1 tablet by mouth twice daily Hadley Mcpherson MD [id number],S,w ell controlled H is updated medication list for this problem includes: Crestor 20 Mg Tablet (Rosuvastatin) ..... 1 tablet by mouth once a day Hadley Mcpherson MD [id number],S,no longer SOB Hadley Mcpherson MD [id number],S,P t notes that BP is markedly elevated at night up to 200 systolic but low in the morning. We will add spironolactone 25mg every evening. Will obtain CRP, Lp(a), proBNP H is updated medication list for this problem includes: Norvasc 10 Mg Tablet (Amlodipine) ..... Take 1 tablet by mouth once a day Spironolactone 25 Mg Tablet (Spironolactone) ..... Take 1 tablet by mouth once daily Carvedilol 6.25 Mg Tablet (Carvedilol) ..... Take 1 tablet by mouth twice daily Furosemide 40 Mg Tablet (Furosemide) ..... Take 1 tablet by mouth every day Losartan-hydrochlorothiazide 100-12.5 Mg Tablet (Losartan-hydrochlorothiazide) ..... 1 tablet once a day Hadley Mcpherson MD [id number],C,M yoview scan was normal.. AAA was 2.7 cm (unchanged). Still reports exertional dyspnea with fatigue. We will check CBC. Ferritin level was low, he will try oral iron. Sandra Patemiguel [id number],C, H is updated medication list for this problem includes: Crestor 20 Mg Tablet (Rosuvastatin) ..... 1 tablet by mouth once a day Sandra Patemiguel [id number],C, H is updated medication list for this problem includes: Carvedilol 6.25 Mg Tablet (Carvedilol) ..... Take 1 tablet by mouth twice daily Clopidogrel 75 Mg Tablet (Clopidogrel) ..... Take 1 tablet by mouth daily Norvasc 10 Mg Tablet (Amlodipine) ..... 0.5 tablet by mouth once a day Sandra Patemiguel [id number],C,B P elevated and we will increase carvedilol to 6.25 mg BID. If symptoms persist, we will consider cardiac cath. BP today: 143/82 P rior BP: 147/89 (10/29/2022) Labs Reviewed: C reat: 1.40 (11/03/2020) C hol: 116 (11/03/2020) HDL: 35 (11/03/2020) His updated medication list for this problem includes: Carvedilol 6.25 Mg Tablet (Carvedilol) ..... Take 1 tablet by mouth twice daily Furosemide 40 Mg Tablet (Furosemide) ..... Take 1 tablet by mouth every day Losartan-hydrochlorothiazide 100-12.5 Mg Tablet (Losartan-hydrochlorothiazide) ..... 1 tablet once a day Norvasc 10 Mg Tablet (Amlodipine) ..... 0.5 tablet by mouth once a day Sandra Hwang [id number],S, W eight loss advised. Dee Wilson [id number],C, H is updated medication list for this problem includes: Crestor 20 Mg Tablet (Rosuvastatin) ..... 1 tablet by mouth once a day Dee Wilson [id number],C, B P today: 147/89 P rior BP: 143/80 (10/16/2021) Labs Reviewed: C reat: 1.40 (11/03/2020) C hol: 116 (11/03/2020) HDL: 35 (11/03/2020) His updated medication list for this problem includes: Carvedilol 3.125 Mg Tablet (Carvedilol) ..... Take 1 tablet by mouth twice daily Losartan-hydrochlorothiazide 100-12.5 Mg Tablet (Losartan-hydrochlorothiazide) ..... 1 tablet once a day Norvasc 10 Mg Tablet (Amlodipine) ..... 0.5 tablet by mouth once a day Dee Wilson [id number],C,C omplaining of exertional dyspnea, excessive fatigue with exertion. In view of hx of CAD, Will obtain stress test myoview and AAA duplex (2.7 cm at last duplex). Will obtain BMP, proBNP, hsCRP, UACR and iron studies. Dee Wilson [id number],C,C omplaining of exertional dyspnea, excessive fatigue with exertion. In view of hx of CAD, Will obtain stress test myoview and AAA duplex (2.7 cm at last duplex). Will obtain BMP, proBNP, hsCRP, UACR and iron studies. [facility] [id number],C,C omplaining of exertional dyspnea, excessive fatigue with exertion. In view of hx of CAD, Will obtain stress test myoview and AAA duplex (2.7 cm at last duplex). Will obtain BMP, proBNP, hsCRP, UACR and iron studies. [facility] [id number],C, . WIll obtain echo and AAA duplex. 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 No DVT. Arterial duplex was essentially normal. Has significant insufficiency of the left femoral vein. Will continue Lasix and support stockings. In addition, he c/o of generalized fatigue. Will obtain CRP to assess inflammation level. Pt denies SOB and chest pain. WIll obtain echo and AAA duplex. H is updated medication list for this problem includes: Losartan-hydrochlorothiazide 100-12.5 Mg Tablet (Losartan-hydrochlorothiazide) ..... 1 tablet once a day Clopidogrel 75 Mg Tablet (Clopidogrel) ..... Take 1 tablet once a day Carvedilol 3.125 Mg Tablet (Carvedilol) ..... Take 1 tablet by mouth twice a day Norvasc 10 Mg Tablet (Amlodipine) ..... 0.5 tablet by mouth once a day Lasix 40 Mg Tablet (Furosemide) ..... Take 1 tablet by mouth every day 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 No DVT. Arterial duplex was essentially normal. Has significant insufficiency of the left femoral vein. Will continue Lasix and support stockings. Dee Wilson [id number],C, In addition, he c/o of generalized fatigue. Will obtain CRP to assess inflammation level. Pt denies SOB and chest pain. WIll obtain echo and AAA duplex. H is updated medication list for this problem includes: Clopidogrel 75 Mg Tablet (Clopidogrel) ..... Take 1 tablet once a day Carvedilol 3.125 Mg Tablet (Carvedilol) ..... Take 1 tablet by mouth twice a day Norvasc 10 Mg Tablet (Amlodipine) ..... 0.5 tablet by mouth once a day Dee Wilson [id number],S, W eight loss advised. Hadley Mcpherson MD [id number],C, H is updated medication list for this problem includes: Crestor 20 Mg Oral Tablet (Rosuvastatin calcium) ..... One tab. daily Hadley Mcpherson MD [id number],C, B P today: 143/80 P rior BP: 146/84 (11/02/2020) Labs Reviewed: C reat: 1.40 (11/03/2020) C hol: 116 (11/03/2020) HDL: 35 (11/03/2020) His updated medication list for this problem includes: Lasix 40 Mg Tablet (Furosemide) ..... Take 1 tablet by mouth every day Carvedilol 3.125 Mg Tablet (Carvedilol) ..... Take 1 tablet by mouth twice daily Losartan Potassium-hctz 100-12.5 Mg Oral Tablet (Losartan potassium-hctz) ..... One tablet daily Norvasc 10 Mg Oral Tablet (Amlodipine besylate) ..... 1/2 tablet daily Hadley Mcpherson MD [id number],S,T he pt complaining of swelling and cold sensation in the left leg. The right leg feels normal. Venous duplex on 08/18/21 showed successful venaseal and no DVT. In view of his sx we will repeat venous doppler and obtain arterial duplex and will start Lasix 40mg daily. Hadley Mcpherson MD [id number],S, P rior BP: 146/84 (11/02/2020) Labs Reviewed: C reat: 1.40 (11/03/2020) C hol: 116 (11/03/2020) HDL: 35 (11/03/2020) His updated medication list for this problem includes: Carvedilol 3.125 Mg Tablet (Carvedilol) ..... Take 1 tablet by mouth twice daily Losartan Potassium-hctz 100-12.5 Mg Oral Tablet (Losartan potassium-hctz) ..... One tablet daily Norvasc 10 Mg Oral Tablet (Amlodipine besylate) ..... 1/2 tablet daily Hadley Mcpherson MD Cardiology: Most rec ent echo showed normal EF with evidence of mild aortic insufficiency. [facility]:BP is lab ile on RPM, still having drops to 100. We will continue meds to avoid recurrence of dizziness.' BP today: 130/90 P rior BP: 142/84 (01/15/2024) Labs Reviewed: Creat: 1.40 (11/03/2020) C hol: 116 (11/03/2020) HDL: 35 (11/03/2020) LDL: 53 (11/03/2020) T (11/03/2020) His updated medication list for this problem includes: Norvasc 5 Mg Tablet (Amlodipine) ..... Take 1 tablet by mouth once a day Spironolactone 25 Mg Tablet (Spironolactone) ..... Take 1 tablet by mouth every day Furosemide 40 Mg Tablet (Furosemide) ..... Take 1 tablet by mouth every day This visit has been a part of the consistent, comprehensive, and ongoing management of the chronic medical condition(s) listed above for the patient. [facility]:Will order a AAA US t o follow [facility]: Pt also complains of fatigue, attributed to leg claudication. We will order an MAGNOLIA. [facility]: W eight loss advised. [facility]: H is updated medication list for this problem includes: Crestor 20 Mg Tablet (Rosuvastatin) ..... 1 tablet by mouth once a day This visit has been a part of the consistent, comprehensive, and ongoing management of the chronic medical condition(s) listed above for the patient. [facility]:Denies CP and SOB H is updated medication list for this problem includes: Norvasc 5 Mg Tablet (Amlodipine) ..... Take 1 tablet by mouth once a day Clopidogrel 75 Mg Tablet (Clopidogrel) ..... Take 1 tablet by mouth daily [facility]:Pt compla ins of fatigue. He noted that when he does not take BP meds he is feeling better. Review of RPM shows multiple episodes systolic BP drops to 100. We will stop carvedilol and losartan(pt believes losartan caused him tinnitus) and cut norvasc to 5 mg daily. We will monitor BP through RPM closely and adjst meds as needed. B P today: 142/84 P rior BP: 147/80 (07/10/2023) Labs Reviewed: C reat: 1.40 (11/03/2020) C hol: 116 (11/03/2020) HDL: 35 (11/03/2020) LDL: 53 (11/03/2020) T (11/03/2020) The following medications were removed from the medication list: Losartan 100 Mg Tablet (Losartan) Carvedilol 6.25 Mg Tablet (Carvedilol) ..... Take 1 tablet by mouth twice daily His updated medication list for this problem includes: Norvasc 5 Mg Tablet (Amlodipine) ..... Take 1 tablet by mouth once a day Spironolactone 25 Mg Tablet (Spironolactone) ..... Take 1 tablet by mouth every day Furosemide 40 Mg Tablet (Furosemide) ..... Take 1 tablet by mouth every day [facility]:Pt compla ins of fatigue. He noted that when he does not take BP meds he is feeling better. Review of RPM shows multiple episodes systolic BP drops to 100. We will stop carvedilol and losartan(pt believes losartan caused him tinnitus) and cut norvasc to 5 mg daily. We will monitor BP through RPM closely and adjst meds as needed. [facility]: H is updated medication list for this problem includes: Crestor 20 Mg Tablet (Rosuvastatin) ..... 1 tablet by mouth once a day This visit has been a part of the consistent, comprehensive, and ongoing management of the chronic medical condition(s) listed above for the patient. [facility]: T he following medications were removed from the medication list: Losartan 100 Mg Tablet (Losartan) Carvedilol 6.25 Mg Tablet (Carvedilol) ..... Take 1 tablet by mouth twice daily His updated medication list for this problem includes: Norvasc 5 Mg Tablet (Amlodipine) ..... Take 1 tablet by mouth once a day Spironolactone 25 Mg Tablet (Spironolactone) ..... Take 1 tablet by mouth every day Clopidogrel 75 Mg Tablet (Clopidogrel) ..... Take 1 tablet by mouth daily Furosemide 40 Mg Tablet (Furosemide) ..... Take 1 tablet by mouth every day This visit has been a part of the consistent, comprehensive, and ongoing management of the chronic medical condition(s) listed above for the patient. [facility]: W eight loss advised. [facility]: H is updated medication list for this problem includes: Crestor 20 Mg Tablet (Rosuvastatin) ..... 1 tablet by mouth once a day [facility]: d lindsayiesSODevora The following medications were removed from the medication list: Losartan-hydrochlorothiazide 100-12.5 Mg Tablet (Losartan-hydrochlorothiazide) ..... 1 tablet once a day His updated medication list for this problem includes: Losartan 100 Mg Tablet (Losartan) Norvasc 10 Mg Tablet (Amlodipine) ..... Take 1 tablet by mouth once a day Spironolactone 25 Mg Tablet (Spironolactone) ..... Take 1 tablet by mouth once daily Clopidogrel 75 Mg Tablet (Clopidogrel) ..... Take 1 tablet by mouth daily Carvedilol 6.25 Mg Tablet (Carvedilol) ..... Take 1 tablet by mouth twice daily Furosemide 40 Mg Tablet (Furosemide) ..... Take 1 tablet by mouth every day [facility]: B P today: 147/80 P rior BP: 140/79 (04/15/2023) The following medications were removed from the medication list: Losartan-hydrochlorothiazide 100-12.5 Mg Tablet (Losartan-hydrochlorothiazide) ..... 1 tablet once a day His updated medication list for this problem includes: Losartan 100 Mg Tablet (Losartan) Norvasc 10 Mg Tablet (Amlodipine) ..... Take 1 tablet by mouth once a day Spironolactone 25 Mg Tablet (Spironolactone) ..... Take 1 tablet by mouth once daily Carvedilol 6.25 Mg Tablet (Carvedilol) ..... Take 1 tablet by mouth twice daily Furosemide 40 Mg Tablet (Furosemide) ..... Take 1 tablet by mouth every day [facility]:Patient w as started on new medicastion for irritated bladder. After that, noted that when he drinks hot coffee he gets some CP and esophageal spasm. Now that he stopped medication the pain resolved. It does not appear ot be of caridac origin, however he was instructed to call us back if pain returns. [facility] Hadley Mcpherson MD Cardiology:denies CP and SOB H is updated medication list for this problem includes: Norvasc 10 Mg Tablet (Amlodipine) ..... Take 1 tablet by mouth once a day Spironolactone 25 Mg Tablet (Spironolactone) ..... Take 1 tablet by mouth once daily Clopidogrel 75 Mg Tablet (Clopidogrel) ..... Take 1 tablet by mouth daily Carvedilol 6.25 Mg Tablet (Carvedilol) ..... Take 1 tablet by mouth twice daily Furosemide 40 Mg Tablet (Furosemide) ..... Take 1 tablet by mouth every day Losartan-hydrochlorothiazide 100-12.5 Mg Tablet (Losartan-hydrochlorothiazide) ..... 1 tablet once a day Hadley Mcpherson MD Cardiology:asx His updated medication list for this problem includes: Norvasc 10 Mg Tablet (Amlodipine) ..... Take 1 tablet by mouth once a day Spironolactone 25 Mg Tablet (Spironolactone) ..... Take 1 tablet by mouth once daily Carvedilol 6.25 Mg Tablet (Carvedilol) ..... Take 1 tablet by mouth twice daily Furosemide 40 Mg Tablet (Furosemide) ..... Take 1 tablet by mouth every day Losartan-hydrochlorothiazide 100-12.5 Mg Tablet (Losartan-hydrochlorothiazide) ..... 1 tablet once a day Hadley Mcpherson MD Cardiology:no angina H is updated medication list for this problem includes: Norvasc 10 Mg Tablet (Amlodipine) ..... Take 1 tablet by mouth once a day Clopidogrel 75 Mg Tablet (Clopidogrel) ..... Take 1 tablet by mouth daily Carvedilol 6.25 Mg Tablet (Carvedilol) ..... Take 1 tablet by mouth twice daily Hadley Mcpherson MD Cardiology:well cont rolled H is updated medication list for this problem includes: Crestor 20 Mg Tablet (Rosuvastatin) ..... 1 tablet by mouth once a day Hadley Mcpherson MD Cardiology:no longer SOB Hadley velazquez MD Cardiology:Pt notes that BP is markedly elevated at night up to 200 systolic but low in the morning. We will add spironolactone 25mg every evening. Will obtain CRP, Lp(a), proBNP H is updated medication list for this problem includes: Norvasc 10 Mg Tablet (Amlodipine) ..... Take 1 tablet by mouth once a day Spironolactone 25 Mg Tablet (Spironolactone) ..... Take 1 tablet by mouth once daily Carvedilol 6.25 Mg Tablet (Carvedilol) ..... Take 1 tablet by mouth twice daily Furosemide 40 Mg Tablet (Furosemide) ..... Take 1 tablet by mouth every day Losartan-hydrochlorothiazide 100-12.5 Mg Tablet (Losartan-hydrochlorothiazide) ..... 1 tablet once a day Hadley Mcpherson MD Cardiology:Myoview s can was normal.. AAA was 2.7 cm (unchanged). Still reports exertional dyspnea with fatigue. We will check CBC. Ferritin level was low, he will try oral iron. Sandra [facility]: H is updated medication list for this problem includes: Crestor 20 Mg Tablet (Rosuvastatin) ..... 1 tablet by mouth once a day Sandra [facility]ri [facility]: H is updated medication list for this problem includes: Carvedilol 6.25 Mg Tablet (Carvedilol) ..... Take 1 tablet by mouth twice daily Clopidogrel 75 Mg Tablet (Clopidogrel) ..... Take 1 tablet by mouth daily Norvasc 10 Mg Tablet (Amlodipine) ..... 0.5 tablet by mouth once a day Sandra [facility]wang Cardiology:BP elevat ed and we will increase carvedilol to 6.25 mg BID. If symptoms persist, we will consider cardiac cath. BP today: 143/82 P rior BP: 147/89 (10/29/2022) Labs Reviewed: C reat: 1.40 (11/03/2020) C hol: 116 (11/03/2020) HDL: 35 (11/03/2020) His updated medication list for this problem includes: Carvedilol 6.25 Mg Tablet (Carvedilol) ..... Take 1 tablet by mouth twice daily Furosemide 40 Mg Tablet (Furosemide) ..... Take 1 tablet by mouth every day Losartan-hydrochlorothiazide 100-12.5 Mg Tablet (Losartan-hydrochlorothiazide) ..... 1 tablet once a day Norvasc 10 Mg Tablet (Amlodipine) ..... 0.5 tablet by mouth once a day Sandra [facility] Card[facility]: W eight loss advised. Dee Wilson Cardiology: H is updated medication list for this problem includes: Crestor 20 Mg Tablet (Rosuvastatin) ..... 1 tablet by mouth once a day Dee Wilson Cardiology: B P today: 147/89 P rior BP: 143/80 (10/16/2021) Labs Reviewed: C reat: 1.40 (11/03/2020) C hol: 116 (11/03/2020) HDL: 35 (11/03/2020) His updated medication list for this problem includes: Carvedilol 3.125 Mg Tablet (Carvedilol) ..... Take 1 tablet by mouth twice daily Losartan-hydrochlorothiazide 100-12.5 Mg Tablet (Losartan-hydrochlorothiazide) ..... 1 tablet once a day Norvasc 10 Mg Tablet (Amlodipine) ..... 0.5 tablet by mouth once a day Dee Wilson Cardiology:Complaini ng of exertional dyspnea, excessive fatigue with exertion. In view of hx of CAD, Will obtain stress test myoview and AAA duplex (2.7 cm at last duplex). Will obtain BMP, proBNP, hsCRP, UACR and iron studies. [facility] Cardiology:Complaini ng of exertional dyspnea, excessive fatigue with exertion. In view of hx of CAD, Will obtain stress test myoview and AAA duplex (2.7 cm at last duplex). Will obtain BMP, proBNP, hsCRP, UACR and iron studies. [facility] Cardiology:Complaini ng of exertional dyspnea, excessive fatigue with exertion. In view of hx of CAD, Will obtain stress test myoview and AAA duplex (2.7 cm at last duplex). Will obtain BMP, proBNP, hsCRP, UACR and iron studies. [facility] Cardiology: . WIll obtain echo and AAA duplex. 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 No DVT. Arterial duplex was essentially normal. Has significant insufficiency of the left femoral vein. Will continue Lasix and support stockings. In addition, he c/o of generalized fatigue. Will obtain CRP to assess inflammation level. Pt denies SOB and chest pain. WIll obtain echo and AAA duplex. H is updated medication list for this problem includes: Losartan-hydrochlorothiazide 100-12.5 Mg Tablet (Losartan-hydrochlorothiazide) ..... 1 tablet once a day Clopidogrel 75 Mg Tablet (Clopidogrel) ..... Take 1 tablet once a day Carvedilol 3.125 Mg Tablet (Carvedilol) ..... Take 1 tablet by mouth twice a day Norvasc 10 Mg Tablet (Amlodipine) ..... 0.5 tablet by mouth once a day Lasix 40 Mg Tablet (Furosemide) ..... 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 No DVT. Arterial duplex was essentially normal. Has significant insufficiency of the left femoral vein. Will continue Lasix and support stockings. [facility] Cardiology: In addition, he c/o of generalized fatigue. Will obtain CRP to assess inflammation level. Pt denies SOB and chest pain. WIll obtain echo and AAA duplex. H is updated medication list for this problem includes: Clopidogrel 75 Mg Tablet (Clopidogrel) ..... Take 1 tablet once a day Carvedilol 3.125 Mg Tablet (Carvedilol) ..... Take 1 tablet by mouth twice a day Norvasc 10 Mg Tablet (Amlodipine) ..... 0.5 tablet by mouth once a day Dee Wilson Cardiology: W eight loss advised. Hadley Mcpherson MD Cardiology: H is updated medication list for this problem includes: Crestor 20 Mg Oral Tablet (Rosuvastatin calcium) ..... One tab. daily Hadley Mcpherson MD Cardiology: B P today: 143/80 P rior BP: 146/84 (11/02/2020) Labs Reviewed: C reat: 1.40 (11/03/2020) C hol: 116 (11/03/2020) HDL: 35 (11/03/2020) His updated medication list for this problem includes: Lasix 40 Mg Tablet (Furosemide) ..... Take 1 tablet by mouth every day Carvedilol 3.125 Mg Tablet (Carvedilol) ..... Take 1 tablet by mouth twice daily Losartan Potassium-hctz 100-12.5 Mg Oral Tablet (Losartan potassium-hctz) ..... One tablet daily Norvasc 10 Mg Oral Tablet (Amlodipine besylate) ..... 1/2 tablet daily Hadley Mcpherson MD Telehealth:The pt co mplaining of swelling and cold sensation in the left leg. The right leg feels normal. Venous duplex on 08/18/21 showed successful venaseal and no DVT. In view of his sx we will repeat venous doppler and obtain arterial duplex and will start Lasix 40mg daily. Hadley Mcpherson MD Telehealth: P rior BP: 146/84 (11/02/2020) Labs Reviewed: C reat: 1.40 (11/03/2020) C hol: 116 (11/03/2020) HDL: 35 (11/03/2020) His updated medication list for this problem includes: Carvedilol 3.125 Mg Tablet (Carvedilol) ..... Take 1 tablet by mouth twice daily Losartan Potassium-hctz 100-12.5 Mg Oral Tablet (Losartan potassium-hctz) ..... One tablet daily Norvasc 10 Mg Oral Tablet (Amlodipine besylate) ..... 1/2 tablet daily Hadley Mcpherson MD Cardiology:His [facility] ed medication list for this problem includes: Crestor 20 Mg Oral Tablet (Rosuvastatin calcium) ..... One tab. daily Orders: L IPID PANEL (3580) Howard Michel Cardiology:BP today: 146/84 P rior BP: 128/84 (09/02/2019) His updated medication list for this problem includes: Losartan Potassium-hctz 100-12.5 Mg Oral Tablet (Losartan potassium-hctz) ..... One tablet daily Carvedilol 3.125mg Tablets (Carvedilol) ..... Take 1 tablet by mouth twice daily Norvasc 10 Mg Oral Tablet (Amlodipine besylate) ..... 1/2 tablet daily Howard Michel Cardiology:Last year , AAA duplex showed diameter of 3.0 cm. Will arrange a f/u duplex. Howard Michel Cardiology:Last year , venous duplex showed significant b/l venous insufficiency, and MAGNOLIA's showed only mild arterial disease. He continues to complain of leg swelling despite using compression stockings, leg elevation and diuretics. We will arrange venography w/IVUS imaging to rule out May-Thurner syndrome. Howard Michel Cardiology:He compla ins of SOB and reduced exercise capacity, similar to how he felt before his last coronary intervention. We will arrange cardiac cath. His updated medication list for this problem includes: Losartan Potassium-hctz 100-12.5 Mg Oral Tablet (Losartan potassium-hctz) ..... One tablet daily Carvedilol 3.125mg Tablets (Carvedilol) ..... Take 1 tablet by mouth twice daily Norvasc 10 Mg Oral Tablet (Amlodipine besylate) ..... 1/2 tablet daily [facility] Cardiology:He compla ins of SOB and reduced exercise capacity, similar to how he felt before his last coronary intervention. We will arrange cardiac cath. His updated medication list for this problem includes: Brilinta 90mg Tablets (Ticagrelor) ..... Take 1 tablet by mouth twice daily Carvedilol 3.125mg Tablets (Carvedilol) ..... Take 1 tablet by mouth twice daily Norvasc 10 Mg Oral Tablet (Amlodipine besylate) ..... 1/2 tablet daily [facility] Cardiology:His updat ed medication list for this problem includes: Crestor 20 Mg Oral Tablet (Rosuvastatin calcium) ..... One tab. daily [facility] Cardiology:BP today: 128/84 P rior BP: 120/74 (05/13/2019) Labs Reviewed: C reat: 1.46 (05/02/2019) His updated medication list for this problem includes: Losartan Potassium-hctz 100-12.5 Mg Oral Tablet (Losartan potassium-hctz) ..... One tablet daily Carvedilol 3.125mg Tablets (Carvedilol) ..... Take 1 tablet by mouth twice daily Norvasc 10 Mg Oral Tablet (Amlodipine besylate) ..... 1/2 tablet daily [facility] Cardiology:Orders: A rterial Duplex Bi-Lower EX (CPT-21534) [facility] Cardiology:Orders: A fouzia Duplex Ultrasound (CPT-79961) [facility] Cardiology:He compla ins of leg heaviness and swelling of the legs toward the end of the day. In 2017 he was found to have venous insufficiency. He has hx of AAA. Will obtain venous duplex. If he has venous insufficiency he would like to proceed to venography w/IVUS with possible iliac vein stenting. Following that we will consider Venaseal. [facility] Cardiology:He had an admission last year for cholecystisis. In the hospital he developed an episode of CHF (BNP was >500), possibly related to IV hydration. He would like to participate in the Deliver clinical trial. His updated medication list for this problem includes: Losartan Potassium-hctz 100-12.5 Mg Oral Tablet (Losartan potassium-hctz) ..... One tablet daily Carvedilol 3.125mg Tablets (Carvedilol) ..... Take 1 tablet by mouth twice daily Norvasc 10 Mg Oral Tablet (Amlodipine besylate) ..... 1/2 tablet daily [facility] Cardiology:Stress te st last year was normal. No chest pain. His updated medication list for this problem includes: Brilinta 90 Mg Oral Tablet (Ticagrelor) ..... One tab. twice daily Carvedilol 3.125mg Tablets (Carvedilol) ..... Take 1 tablet by mouth twice daily Norvasc 10 Mg Oral Tablet (Amlodipine besylate) ..... 1/2 tablet daily [facility] Cardiology hospital follow up : V enous duplex showed significant venous insufficiency bilaterally. Will try support stockings. If no relief, will consider venography with IVUS. Ang Calvin MD Cardiology hospital follow up :p ro 500 Ang Calvin MD Cardiology hospital follow up Momin daniela Calvin MD Cardiology hospital follow up :2017 for benigno garcia 40% lm, neg nuv 2019, stable on brielnta Ang Calvin MD Cardiology follow up :Incidental finding on AAA duplex today: There is a 2.5 x 2.7cm right renal cyst. The right kidney is normal in size measuring 11.8cm. Orders: Svetlana jorgensen Ultrasound (CPT-88505) [facility] Cardiology follow up :He denies palpitations. Telesentry showed rare PAC's and PVC's. [facility] Cardiology follow up :Recommended to keep LDL at 70 or less. His updated medication list for this problem includes: Crestor 20 Mg Oral Tablet (Rosuvastatin calcium) ..... One tab. daily [facility] Cardiology follow up :BP today: 122/70 P rior BP: 149/90 (02/05/2018) His updated medication list for this problem includes: Losartan Potassium-hctz 100-12.5 Mg Oral Tablet (Losartan potassium-hctz) ..... Take one pill a day Coreg 3.125 Mg Oral Tablet (Carvedilol) ..... One tablet twice daily Norvasc 10 Mg Oral Tablet (Amlodipine besylate) ..... 1/2 tablet daily Howard [facility] Cardiology follow up :Pt reports that he has decreased exercise capacity. Will obtain stress myoview. The following medications were stopped: Aspirin Ec 81 Mg Oral Tablet Delayed Release (Aspirin) ..... One tab daily His updated medication list for this problem includes: Brilinta 90 Mg Oral Tablet (Ticagrelor) ..... One tab. twice daily Coreg 3.125 Mg Oral Tablet (Carvedilol) ..... One tablet twice daily Norvasc 10 Mg Oral Tablet (Amlodipine besylate) ..... 1/2 tablet daily [facility] Cardiology follow up :AAA size is slightly increased to 3.0 cm. Will obtain f/u duplex in 6 months. [facility]:BP today: 149/90 P rior BP: 131/79 (06/05/2017) His updated medication list for this problem includes: Losartan Potassium-hctz 100-12.5 Mg Oral Tablet (Losartan potassium-hctz) ..... Take one pill a day Coreg 3.125 Mg Oral Tablet (Carvedilol) ..... One tablet twice daily Norvasc 10 Mg Oral Tablet (Amlodipine besylate) ..... 1/2 tablet daily Hadley Mcpherson MD Cardiology:His [facility] ed medication list for this problem includes: Coreg 3.125 Mg Oral Tablet (Carvedilol) ..... One tablet twice daily Norvasc 10 Mg Oral Tablet (Amlodipine besylate) ..... 1/2 tablet daily [place] Brilinta 90 Mg One Tab Twice A Day [place] Aspirin 81 Mg One Tab Daily Hadley Mcpherson MD Cardiology:Orders: M obile Cardiac Tele (CPT-33067) Hadley Mcpherson MD Cardiology:Orders: A fouzia Duplex Ultrasound (AAA) (CPT-46211) Hadley Mcpherson MD Cardiology:Weight loss advised. [facility] Cardiology:His upd ed medication list for this problem includes: Crestor 20 Mg Oral Tablet (Rosuvastatin calcium) ..... One tab. daily [facility] Cardiology:BP today: 131/79 P rior BP: 151/94 (05/15/2017) His updated medication list for this problem includes: Losartan Potassium-hctz 100-12.5 Mg Oral Tablet (Losartan potassium-hctz) ..... Take one pill a day Coreg 12.5 Mg Oral Tablet (Carvedilol) ..... Half tablet twice a day Norvasc 10 Mg Oral Tablet (Amlodipine besylate) ..... One tablet daily [facility] Cardiology:No chest pain or SOB. His updated medication list for this problem includes: Coreg 12.5 Mg Oral Tablet (Carvedilol) ..... Half tablet twice a day Norvasc 10 Mg Oral Tablet (Amlodipine besylate) ..... One tablet daily [place] Brilinta 90 Mg One Tab Twice A Day [place] Aspirin 81 Mg One Tab Daily [facility] Cardiology:Fatigue s ignificantly improved with decreasing the dose of Coreg. Will check a sleep study. [facility] Cardiology:Venous du plex showed significant venous insufficiency bilaterally. Will try support stockings. If no relief, will consider venography with IVUS. [facility] Cardiology:Venous du plex showed significant venous insufficiency bilaterally. Will try support stockings. If no relief, will consider venography with IVUS. [facility] Cardiology:Arterial duplex showed mild plaque. Orders: S NOMED-CT: [id number] Current Medications Documented ([id number]) A fouzia Duplex Ultrasound (AAA) (CPT-97348) [facility] Follow up:His updated medication list for this problem includes: Crestor 10 Mg Oral Tablet (Rosuvastatin calcium) ..... One tab. daily [facility] Follow up:BP today: 151/94 His updated medication list for this problem includes: Losartan Potassium-hctz 100-12.5 Mg Oral Tablet (Losartan potassium-hctz) ..... Take one pill a day Norvasc 10 Mg Oral Tablet (Amlodipine besylate) ..... One tablet daily [facility] Follow up:He reports leg swelling which worsens throughout the day. Symptoms are consistent with venous insufficiency and we will obtain venous duplex. [facility] Follow up:He reports tightness in the calves after walking that resovles with rest. Symptoms are consistent with claudication and we will obtain MAGNOLIA's. [facility] Follow up:He complains of fatigue and we will wean off Coreg. [facility] Follow up:The pt presented with unstable angina pectoris. Cardiac cath revealed triple vessel disease and we stented the LCX and LAD. We were not able to cross the PDA. His pain has completely resolved. His updated medication list for this problem includes: Norvasc 10 Mg Oral Tablet (Amlodipine besylate) ..... One tablet daily [place] Brilinta 90 Mg One Tab Twice A Day [place] Aspirin 81 Mg One Tab Daily [facility] Date Name Arterial Duplex Bi-L ower EX Aorta Duplex Ultraso und HEMOGLOBIN A1c Microalb/Creatinine Urine, Random Complete Echo PROBNP, N TERMINAL Lipoprotein (a) CRP, high sensitivit y CBC (INCLUDES DIFF/P LT) Aorta Duplex Ultraso und Stress Exercise Card iolite IRON AND TOTAL IRON BINDING CAPACITY FERRITIN CBC (INCLUDES DIFF/P LT) Microalb/Creatinine Urine, Random CRP, high sensitivit y BASIC METABOLIC PANE L W/EGFR PROBNP, N TERMINAL Aorta Duplex Ultraso und Complete Echo PROBNP, N TERMINAL COMPREHENSIVE METABO LIC PANEL, W/EGFR LIPID PANEL CRP, high sensitivit y Venous Doppler Bilat eral LE - Reflux Arterial Duplex Bi-L ower EX Venous Doppler Unila teral LLE Venous Doppler Unila teral LLE Venous Doppler Unila teral RLE Venous Doppler Bilat eral LE PROTHROMBIN TIME WIT H INR LIPID PANEL CBC (INCLUDES DIFF/P LT) BASIC METABOLIC PANE L W/EGFR Venogram w/ IVUS - S [facility] Cardiac Cath - Left - [facility] Aorta Duplex Ultraso und Venous Doppler Bilat eral LE - Reflux Arterial Duplex Bi-L ower EX Aorta Duplex Ultraso und Carotid Duplex Bilat eral Carotid Duplex Bilat eral Complete Echo Aorta Duplex Ultraso und (AAA) Kidney Ultrasound Stress Exercise Card iolite Aorta Duplex Ultraso und (AAA) Mobile Cardiac Tele Sleep Study Home Aorta Duplex Ultraso und (AAA) Arterial Duplex Bi-L ower EX Venous Doppler Bilat eral LE - Reflux HISTORY OF PROCEDURES Procedure Date Procedure Name Provider Procedure Notes S tatus Complex e/m visit add on Hadley Mcpherson MD completed Complex e/m visit add on Hadley Mcpherson MD completed EKG Hadley Mcpherson MD completed EKG Hadley Mcpherson MD completed EKG Hadley Mcpherson MD completed EKG Hadley Mcpherson MD completed Ultrasound, retroperitoneal, complete Hadley Mcpherson MD completed Regadenoson, 4 units Hadley Mcpherson MD completed Cardiolite, 2 units Hadley Mcpherson MD c ompleted SPECT Images Alisson Medina MD compl eted Stress EKG Alisson Medina MD complet ed EKG Hadley Mcpherson MD completed Mobile Cardiac Telem etry - Tech Hadley Mcpherson MD completed Mobile Cardiac Telem etry - Prof Hadley Mcpherson MD completed SNOMED-CT: [id number] Current Medications Documented Hadley Mcpherson MD completed EKG Hadley Mcpherson MD completed SNOMED-CT: [id number] Current Medications Documented Hadley cMpherson MD completed
[2024-09-15 12:24] LABS: Alanine Aminotransferase 33 U/L (6-50); Albumin Level 4.7 g/dL (3.5-5.1); Alkaline Phosphatase 81 U/L (38-126); Anion Gap 15 mmol/L (4-12); Aspartate Amino Transferase 27 U/L (17-59); Bilirubin,Total 1.9 mg/dL (0.2-1.3); Blood Urea Nitrogen 21 mg/dL (9-20); Calcium 9.2 mg/dL (8.4-10.2); Carbon Dioxide 23 mmol/L (22-30); Chloride 103 mmol/L (98-107); Cholesterol 127 mg/dL (0-200); Estimated Glomerular Filt Rate 46; Glucose 94 mg/dL (65-110); HDL Direct 33 mg/dL; Potassium 3.7 mmol/L (3.4-5.0); Sodium 141 mmol/L (137-145); Triglycerides 376 mg/dL (<150)
[2024-09-15 12:36] LABS: LDL Cholesterol Direct 37 mg/dL
[2024-09-15 14:13] LABS: Vitamin D 25 Hydroxy 57.1 ng/mL
== END 2024-09-15 10:43 | disposition home or self-care (01) ==
PROVIDERS: PCP Family Medicine; Visit Provider Family Medicine
DX: K22.70 Barrett's esophagus without dysplasia (principal); Z79.899 Other long term (current) drug therapy; I10 Essential (primary) hypertension; I25.10 Atherosclerotic heart disease of native coronary artery without angina pectoris; I73.9 Peripheral vascular disease, unspecified; E78.5 Hyperlipidemia, unspecified; E03.9 Hypothyroidism, unspecified
CPT/HCPCS: 36415; 80053; 80061; 82306; 82607; 84443; 85025